=== PATIENT | male | born 1960 | race Caucasian/White ===

== ENCOUNTER 2016-09-07 18:45 | Emergency (ER) | payer MEDICARE, MEDICAID ==
--- OUTSIDE RECORDS SUMMARY | 2016-09-07 19:15 | XMS REPORT | Continuity of Care Document ---
:1960 Author Organization [facility] [place] [address] Care Team Providers Name Role Phone Unavailable Primary Care Provider Unavailable Source Comments This disclosure is being made pursuant to the [employer] program and maynot contain all information available regarding this patient.[facility] Active Allergies and Adverse Reactions Not on File Current Medications Be aware that medications may not be up to date as of this document. Alwaysverify current medications with the patient. Not on file Active Problems Not on file Social History Tobacco Use Types Packs/Day Years Used Date Never Assessed Plan of Care Health Maintenance Due Date Last Done Comments Retired-Pertussis Vaccine Adult 02/17/1979 Retired-Tetanus Vaccine Adult 02/17/1979 Colonoscopy 02/17/2010 Well Adult Visit 02/17/2010 Retired-INFLUENZA VACCINE 11/04/2014 Results from Last 3 Months Not on file
[2016-09-07] MEDS ORDERED: NORMAL SALINE 1,000 ML IV ONE (19:17)
--- NOTE | 2016-09-07 19:32 | ERNOTE ---
Syncope ER HPI Date of Service: 09/07/16 Stated Complaint: SYNCOPE Time Seen by Provider: 09/07/16 19:04 Source: patient Exam Limitations: no limitations Immunizations: IMMUNIZATION HX Immunizations Up to Date Yes History of Influenza Vaccine No Hx Pneumococcal Vaccination No Allergies/Adverse Reactions: Allergies No Known Allergies Allergy (Unverified 09/07/16 18:54) Home Medications: HOME MEDICATIONS Carvedilol [Coreg] 25 mg PO BID 09/07/16 [Last Taken Unknown] Lisinopril [Zestril] 20 mg PO DAILY 09/07/16 [Last Taken Unknown] Simvastatin [Zocor] 20 mg PO HS 09/07/16 [Last Taken Unknown] - History of Present Illness Narrative: Pt. comes in with c/o syncopal episode just prior to arrival while watching a race. Pt. had been sitting out side and began to feel dizzy and states tpt. became unconscious for 2 minutes and then aroused and was back to baseline 30 seconds after event. Pt. states that he has been outside in the heat today and has been drinking Sun tea and mountain dew. Pt. states that his Coreg was also increased today. Pt. has a recent hx of cardiomyopathy and pt. dose was increased as his blood pressure was 130 systolic in the doctors office, Review of Systems - Review of Systems Constitutional: Present: no symptoms reported. Absent: recent illness, fever, chills, weakness, fatigue, malaise EYE: Present: no symptoms reported ENT: Present: no symptoms reported Respiratory: Present: no symptoms reported. Absent: shortness of breath, cough , wheezing Cardiology: Present: no symptoms reported. Absent: chest pain, palpitations, edema Gastrointestinal/Abdominal: Present: no symptoms reported. Absent: nausea, vomiting, diarrhea Genitourinary: Present: no symptoms reported Musculoskeletal: Present: no symptoms reported. Absent: back pain, joint pain Skin: Present: no symptoms reported Neurological: Present: dizziness/light-headedness Endocrine: Present: no symptoms reported All Other Systems: All systems neg except as marked - Patient's Past Medical History Patient History - Medical: No pertinent hx Patient History - Cardiac/Respiratory: Cardiomyopathy, CHF, Hypertension, Hyperlipidemia Patient History - Cancer: No Hx of Cancer Patient History - Surgical Procedures: Cholecystectomy Patient History - Other: None - Social History Living Situations: home Psych History: No pertinent hx Do you dip or chew tobacco: Yes - Immunizations Immunizations Up to Date: Yes Hx Pneumococcal Vaccination: No History of Influenza Vaccine: No Physical Exam - Physical Exam General Appearance: Present: wd/wn, alert, no apparent distress Eye Exam: Normal inspection: bilateral, PERRL: bilateral, EOMI: bilateral Ears, Nose, Throat: Present: normal ENT inspection, normal pharynx Neck: Present: normal inspection, nontender. Absent: lymphadenopathy (R), lymphadenopathy (L) Respiratory: Present: no respiratory distress, normal breath sounds, no accessory muscle use, chest nontender, lungs clear Cardiovascular/Chest: Present: regular rate, rhythm, no murmur, normal peripheral pulses Gastrointestinal/Abdominal: Present: normal bowel sounds, nontender, nondistended, soft, no organomegaly Back Exam: Present: normal inspection, normal range of motion, no CVA tenderness , no vertebral tenderness Extremity Exam: Present: normal inspection, non-tender, normal range of motion, no edema Neurological Exam: Present: alert, oriented, normal mood/affect, no motor/ sensory deficits, quality control checker II-XII nml as tested, normal cerebellar test Skin Exam: Present: normal color, warm/dry. Absent: pallor, skin rash ED Progress - Date and Time Seen: Date and Time: 09/07/16 19:22 Believe that pt. is likely hypotensive from medication and dehydration. 09/07/16 20:42 Pt. orthostatics improved. Pt. educated on decreasing coreg and to follow up with Dr Ruth as he would like her to be his new PCP. Pt. needs echo to evaluate cardiomyopathy. - Vital Signs Patient's Vital Signs:: I have reviewed the patient's vital signs. Vital Signs: Vital Signs 09/07/16 09/07/16 18:48 19:04 Temperature 36.1 C L Pulse Rate 85 94 Respiratory 16 Rate Blood Pressure 103/31 O2 Sat by Pulse 95 Oximetry - EKG EKG: NSR, LBBB EKG read: Reviewed by me EKG Comments: Interp by Dr Riley - Progress/Reassessment Chief Complaint: Syncopal Episode Progress:: Improved Departure Clinical Impression: Dehydration Syncope Qualifiers: Syncope type: heat syncope Encounter type: initial encounter Qualified Code(s) : T67.1XXA - Heat syncope, initial encounter - Departure Disposition: Home self-care Condition: Good Instructions: Hypotension, Syncope, [id number], Vasovagal Syncope, Adult Additional Instructions: Increase water intake. Call here and request nurses to get you appointment with Dr Ruth as I (Darleen) recommend in 1-2 days. Referrals: Mack Allison MD [Primary Care Provider] -
[2016-09-07 19:53] LABS: ALT 61 U/L (19-67); AST 35 U/L (0-48); Albumin * 3.7 gm/dl (3.4-5.0); Alkaline Phosphatase * 79 U/L (50-170); Anion Gap 14.3 mmol/L (6.8-13.8); BUN/Creatinine Ratio 10.9 (9.0-21.6); Bilirubin, Total 0.4 mg/dL (0.0-1.1); Blood Urea Nitrogen 13 mg/dL (6-23); Calcium * 9.1 mg/dL (7.9-10.9); Carbon Dioxide 23.6 mmol/L (24-32.6); Chloride 104 mmol/L (97-106); Glucose * 139 mg/dL (70-110); Potassium 3.9 mmol/L (3.4-4.6); Sodium 138 mmol/L (132-142); Total Protein 7.6 gm/dL (6.2-8.2)
[2016-09-07 19:56] LABS: Troponin I Less than 0.017 ng/ml (0.00-0.10)
[2016-09-07 20:07] LABS: Hematocrit 34.2 % (42.0-52.0); Hemoglobin 10.1 gm/dL (13.5-18.0); Mean Cell Volume 68.4 fl (78-100); Mean Corpuscular Hemoglobin 20.2 pg (27-31); Mean Corpuscular Hgb Conc 29.5 g/dl (32-36); Mean Platelet Volume 8.7 fl (6.0-9.5); Neutrophil # 6.6 K/mm3 (1.3-6.0); Neutrophil % 76.2 % (42-75.0); Platelet Count 266 K/mm3 (150-450); Red Cell Distribution Width 18.5 % (11.5-14.0); White Blood Count 8.7 K/mm3 (4.0-10.5)
[2016-09-07 20:37] VITALS: BP 121/71
== END 2016-09-07 20:57 | disposition home or self-care (01) ==
LOC: ER 18:45
DX: E86.0 Dehydration (principal); T67.1XXA Heat syncope, initial encounter; I10 Essential (primary) hypertension; E78.5 Hyperlipidemia, unspecified; I50.9 Heart failure, unspecified